=== PATIENT | male | born 1965 | race Caucasian/White ===

== ENCOUNTER 2021-10-14 19:49 | Emergency (ER) | payer OTHER ==
[2021-10-14] MEDS ORDERED: LIDOCAINE 1% 20 ML MDV ONE (22:17)
--- NOTE | 2021-10-14 22:28 | ER ---
Nurse's Notes [facility] Name: Dania Mckeon Age: 55 yrs Sex: Male : 1965 Arrival Date: 10/14/2021 Time: 19:50 Bed 6 Private MD: Diagnosis: Puncture wound with foreign body of unspecified hand, initial encounter-FISHOOK REMOVED Presentation: 10/14 21:14 Chief complaint: Patient states: About 7:00 this afternoon, I was fishing anf I got a kd3 couple of hooks stuck in my hand. one on my thumb and one on my middle finger. Coronavirus screen: Vaccine status: Patient reports being unvaccinated. Ebola Screen: No symptoms or risks identified at this time. Initial Sepsis Screen: Does the patient meet any 2 criteria? No. Patient's initial sepsis screen is negative. Does the patient have a suspected source of infection? No. Patient's initial sepsis screen is negative. Risk Assessment: Do you want to hurt yourself or someone else? Patient reports no desire to harm self or others. Onset of symptoms was October 14, 2021. 21:14 Method Of Arrival: Ambulatory kd3 21:14 Acuity: BLANCA 3 kd3 Triage Assessment: 21:19 General: Appears in no apparent distress. Behavior is calm, cooperative. Pain: kd3 Complains of pain in right hand. Historical: - Allergies: 21:19 No Known Allergies; kd3 - Home Meds: 21:19 Aspirin Oral [Active]; kd3 - Immunization history:: Adult Immunizations up to date. - Social history:: Smoking status: Patient denies any tobacco usage or history of. - Family history:: not pertinent. Screenin:20 Abuse screen: Denies threats or abuse. Denies injuries from another. Nutritional kd3 screening: No deficits noted. Tuberculosis screening: No symptoms or risk factors identified. Fall Risk None identified. Assessment: 22:13 General: Appears in no apparent distress. uncomfortable. Pain: Complains of pain in bb right hand. Neuro: Level of Consciousness is awake, alert, obeys commands, Oriented to person, place, time, situation. Cardiovascular: No deficits noted. Respiratory: Respiratory effort is even, unlabored. GI: No signs and/or symptoms were reported involving the gastrointestinal system. Derm: Skin is pink, warm \T\ dry. fish hook embedded in right middle finger. Musculoskeletal: Circulation, motion, and sensation intact. 22:52 Reassessment: Patient is alert, oriented x 3, equal unlabored respirations, skin bb warm/dry/pink. pt verbalized understanding of and agrees to plan of care discharge instructions given pt ambulated with steady gait to exit. Vital Signs: 21:14 BP 134 / 88; Pulse 75; Resp 18; Temp 98.3; Pulse Ox 100% on R/A; Weight 90.72 kg; kd3 Height 6 ft. 1 in. (185.42 cm); Pain 0/10; 21:14 Body Mass Index 26.39 (90.72 kg, 185.42 cm) kd3 ED Course: 19:50 Patient arrived in ED. jj6 21:19 Triage completed. kd3 21:19 Arm band placed on left wrist. kd3 21:20 Patient has correct armband on for positive identification. kd3 21:55 Brandyn Anthony MD is Attending Physician. brandt 22:27 Beth Duenas RN is Primary Nurse. ke1 22:33 Wound care: to puncture located on right hand was dressed with Neosporin, band aid. bb 22:52 No provider procedures requiring assistance completed. Patient did not have IV access bb during this emergency room visit. Administered Medications: 22:20 Drug: Lidocaine (1 %) 5 mg {Note: by Dr Anthony to affected area.} Route: Infiltration;bb 22:51 Follow up: Response: No adverse reaction bb 22:30 Drug: Tetanus Toxoid,Adsorbed 0.5 ml {[employer]el[employer] Reporter: avandeo. Exp: 06/29/2023. Lot bb #: [id number]. } Route: IM; Site: left deltoid; 22:52 Follow up: Response: (VIS) Vaccine information sheet provided today. Questions and/or bb concerns addressed. VIS edition date: Nov 09, 2020. 22:45 Drug: Doxycycline 200 mg Route: PO; bb 22:51 Follow up: Response: No adverse reaction bb 22:45 Drug: Neosporin (vecqjpze-cfpgddxqyr-aducrjdlg) Ointment 1 application Route: Topical; bb Site: affected area; 22:51 Follow up: Response: No adverse reaction bb Medication: 21:20 VIS not applicable for this client. kd3 Outcome: 22:28 Discharge ordered by . brandt 22:52 Discharged to home ambulatory. bb 22:52 Condition: stable 22:52 Discharge instructions given to patient, Instructed on discharge instructions, follow up and referral plans. no driving heavy equipment, medication usage, wound care, Demonstrated understanding of instructions, follow-up care, medications, wound care, Prescriptions given X 2. 22:54 Patient left the ED. bb Signatures: Brandyn Anthony MD MD cha Ballard, Brenda, RN RN Delicia Villatoro jj6 Luci Dowling RN RN kd3 Beth Duenas RN RN ke1
--- NOTE | 2021-10-14 22:29 | EDPHYS ---
Physician Documentation [facility] Name: Dania Mckeon Age: 55 yrs Sex: Male : 1965 Arrival Date: 10/14/2021 Time: 19:50 Bed 6 Private MD: ED Physician Brandyn Anthony HPI: 10/14 22:22 This 55 yrs old Male presents to ER via Ambulatory with complaints of brandt Multiple fish hooks lodged in right hand. 22:22 The patient or guardian reports pain, tenderness. The complaints affect the left hand brandt diffusely. Context: The problem was sustained outdoors. Onset: The symptoms/episode began/occurred just prior to arrival. Modifying factors: The symptoms are alleviated by nothing, the symptoms are aggravated by movement. Associated signs and symptoms: The patient has no apparent associated signs or symptoms. Severity of symptoms: At their worst the symptoms were mild, in the emergency department the symptoms are unchanged. FISH HOOK IN TWO FINGERS. Historical: - Allergies: 21:19 No Known Allergies; kd3 - Home Meds: 21:19 Aspirin Oral [Active]; kd3 - Immunization history:: Adult Immunizations up to date. - Social history:: Smoking status: Patient denies any tobacco usage or history of. - Family history:: not pertinent. ROS: 22:22 Constitutional: Negative for fever, chills, and weight loss, Eyes: Negative for injury, brandt pain, redness, and discharge, ENT: Negative for injury, pain, and discharge, Neck: Negative for injury, pain, and swelling, Cardiovascular: Negative for chest pain, palpitations, and edema, Respiratory: Negative for shortness of breath, cough, wheezing, and pleuritic chest pain, Abdomen/GI: Negative for abdominal pain, nausea, vomiting, diarrhea, and constipation, Back: Negative for injury and pain, : Negative for injury, bleeding, discharge, and swelling, Skin: Negative for injury, rash, and discoloration, Neuro: Negative for headache, weakness, numbness, tingling, and seizure, Psych: Negative for depression, anxiety, suicide ideation, homicidal ideation, and hallucinations, Allergy/Immunology: Negative for hives, rash, and allergies, Endocrine: Negative for neck swelling, polydipsia, polyuria, polyphagia, and marked weight changes. 22:22 MS/extremity: Positive for pain, tenderness, of the palmar aspect of middle phalanx of right ring finger and palmar aspect of distal phalanx of right thumb. Exam: 22:22 Constitutional: This is a well developed, well nourished patient who is awake, alert, brandt and in no acute distress. Head/Face: Normocephalic, atraumatic. Eyes: Pupils equal round and reactive to light, extra-ocular motions intact. Lids and lashes normal. Conjunctiva and sclera are non-icteric and not injected. Cornea within normal limits. Periorbital areas with no swelling, redness, or edema. ENT: Nares patent. No nasal discharge, no septal abnormalities noted. Tympanic membranes are normal and external auditory canals are clear. Oropharynx with no redness, swelling, or masses, exudates, or evidence of obstruction, uvula midline. Mucous membranes moist. Neck: Trachea midline, no thyromegaly or masses palpated, and no cervical lymphadenopathy. Supple, full range of motion without nuchal rigidity, or vertebral point tenderness. No Meningismus. Chest/axilla: Normal chest wall appearance and motion. Nontender with no deformity. No lesions are appreciated. Cardiovascular: Regular rate and rhythm with a normal S1 and S2. No gallops, murmurs, or rubs. Normal PMI, no JVD. No pulse deficits. Respiratory: Lungs have equal breath sounds bilaterally, clear to auscultation and percussion. No rales, rhonchi or wheezes noted. No increased work of breathing, no retractions or nasal flaring. Abdomen/GI: Soft, non-tender, with normal bowel sounds. No distension or tympany. No guarding or rebound. No evidence of tenderness throughout. Back: No spinal tenderness. No costovertebral tenderness. Full range of motion. Male : Normal genitalia with no discharge or lesions. Skin: Warm, dry with normal turgor. Normal color with no rashes, no lesions, and no evidence of cellulitis. Neuro: Awake and alert, GCS 15, oriented to person, place, time, and situation. Cranial nerves II-XII grossly intact. Motor strength 5/5 in all extremities. Sensory grossly intact. Cerebellar exam normal. Normal gait. Psych: Awake, alert, with orientation to person, place and time. Behavior, mood, and affect are within normal limits. 22:22 Musculoskeletal/extremity: ROM: intact in all extremities, full active range of motion, full passive range of motion, Circulation is intact in all extremities. Sensation intact. Compartment Syndrome exam of affected extremity: is normal. Vital Signs: 21:14 BP 134 / 88; Pulse 75; Resp 18; Temp 98.3; Pulse Ox 100% on R/A; Weight 90.72 kg; kd3 Height 6 ft. 1 in. (185.42 cm); Pain 0/10; 21:14 Body Mass Index 26.39 (90.72 kg, 185.42 cm) kd3 Procedures: 22:26 Foreign Body Removal: a fishhook, from the right by using a hemostat, Dressing: none, brandt The patient tolerated the removal well. MDM: 21:55 Patient medically screened. brandt 22:22 Data reviewed: vital signs, nurses notes. Data interpreted: telemetry monitor: not brandt applicable for this patient encounter. rate is 75 beats/min, rhythm is regular, Pulse oximetry: on room air is 100 %. Counseling: I had a detailed discussion with the patient and/or guardian regarding: the historical points, exam findings, and any diagnostic results supporting the discharge/admit diagnosis. Administered Medications: 22:20 Drug: Lidocaine (1 %) 5 mg {Note: by Dr Anthony to affected area.} Route: Infiltration;bb 22:51 Follow up: Response: No adverse reaction bb 22:30 Drug: Tetanus Toxoid,Adsorbed 0.5 ml {[employer]: Selenokhod. Exp: 06/29/2023. Lot bb #: [id number]. } Route: IM; Site: left deltoid; 22:52 Follow up: Response: (VIS) Vaccine information sheet provided today. Questions and/or bb concerns addressed. VIS edition date: Nov 09, 2020. 22:45 Drug: Doxycycline 200 mg Route: PO; bb 22:51 Follow up: Response: No adverse reaction bb 22:45 Drug: Neosporin (lkxqrror-zijpsjrujb-odslxijag) Ointment 1 application Route: Topical; bb Site: affected area; 22:51 Follow up: Response: No adverse reaction bb Disposition Summary: 10/14/21 22:28 Discharge Ordered Location: Home brandt Problem: new brandt Symptoms: have improved brandt Condition: Stable brandt Diagnosis - Puncture wound with foreign body of unspecified hand, initial encounter - FISHOOK brandt REMOVED Followup: brandt - With: Private Physician - When: 2 - 3 days - Reason: Recheck today's complaints, Continuance of care, Re-evaluation by your physician Discharge Instructions: - Discharge Summary Sheet brandt - Puncture Wound brandt - Puncture Wound, [id number] brandt Forms: - Medication Reconciliation Form brandt - Thank You Letter brandt - Antibiotic Education brandt - Prescription Opioid Use brandt Prescriptions: - Doxycycline Hyclate 100 mg Oral Tablet - take 1 tablet by ORAL route every 12 hours; 20 tablet; Refills: 0, Product [facility] Selection Permitted - Tylenol-Codeine #3 300 mg-30 mg Oral - take 2 tablet by ORAL route every 6 hours; 20 tablet; Refills: 0, Product [facility] Selection Permitted Signatures: Brandyn Anthony MD MD cha Ballard, Brenda, RN RN Luci Jay RN RN kd3
[2021-10-14] MEDS ORDERED: DOXYCYCLINE 100 MG CAP PO ONE (22:45)
[2021-10-14] MEDS ORDERED: BACI/NEOMYCIN/POLY OINT 15GM TOP ONE (22:45)
[2021-10-14] MEDS ORDERED: TETANUS & DIPHTHERIA TOX,ADULT 0.5 ML VIAL ONE (22:46)
[2021-10-14 23:02] VITALS: BP 134/88; TEMP 98.3; O2SAT 100
== END 2021-10-14 22:54 | disposition home or self-care (01) ==
LOC: ER 19:49
DX: S61.242A Puncture wound with foreign body of right middle finger without damage to nail, initial encounter (principal); S61.244A Puncture wound with foreign body of right ring finger without damage to nail, initial encounter; Z23 Encounter for immunization
CPT/HCPCS: 90471; 90714; 99283